=== PATIENT | male | born 1970 | race Caucasian/White ===

== ENCOUNTER 2020-03-09 09:45 | Emergency (ER) | payer SELFPAY ==
--- NOTE | 2020-03-09 10:51 | ER Document Report ---
ED GI/ - General Chief Complaint: Groin Pain Stated Complaint: GROIN PAIN Time Seen by Provider: 03/09/20 10:10 Primary Care Provider: KINGSLEY MORA [NO LOCAL MD] - Follow up as needed Notes: 50-year-old male presenting to the emergency department with a 1 month history of and in the testicular region. He states that the right testicle and the right upper area of his scrotum has been giving him pain intermittently for approximately a month. The pain became worse today so he decided to come to the emergency department for further evaluation and treatment. He denies fever, dysuria, charge, nauseavomiting, or a bulging in the groin area. - Related Data Allergies/Adverse Reactions: No Known Allergies Allergy (Verified 03/09/20 09:58) Past Medical History - Social History Smoking Status: Never Smoker Chew tobacco use (# tins/day): No Frequency of alcohol use: Occasional Drug Abuse: None Family History: Reviewed & Not Pertinent Patient has homicidal ideation: No - Past Medical History Cardiac Medical History: Reports: Hx Hypertension Pulmonary Medical History: Reports: Hx Asthma Endocrine Medical History: Reports: Hx Diabetes Mellitus Type 1, Hx Diabetes Mellitus Type 2 - Immunizations Hx Diphtheria, Pertussis, Tetanus Vaccination: Yes Review of Systems - Review of Systems Notes: Constitutional: Negative for fever. HENT: Negative for sore throat. Eyes: Negative for visual changes. Cardiovascular: Negative for chest pain. Respiratory: Negative for shortness of breath. Gastrointestinal: Negative for abdominal pain, vomiting or diarrhea. Genitourinary: + Right testicular pain Musculoskeletal: Negative for back pain. Skin: Negative for rash. Neurological: Negative for headaches, weakness or numbness. 10 point ROS negative except as marked above and in HPI. Physical Exam - Vital signs Vitals: Temp Pulse Resp BP Pulse Ox 98.8 F 115 H 16 130/87 H 99 03/09/20 09:52 03/09/20 09:52 03/09/20 09:52 03/09/20 09:52 03/09/20 09:52 - Notes Notes: PHYSICAL EXAMINATION: Physical Exam: General: Well-nourished well-developed 50-year-old mood in no acute distress HEENT: NC/AT, pupils equal round and reactive to light, MM moist,nares clear, oropharynx clear, airway patent Neck: supple, no adenopathy, no masses. Good range of motion Lungs: clear, no wheezing, no rales no rhonchi CVS: Regular rate and rhythm no murmur gallop or rub Abdomen: Soft, active, nontender, no masses, no hepatosplenomegaly : Normal male genitalia, no tenderness in the epididymis and testicular region on the right. No swelling, no fluid collection. Ext: No edema, clubbing or cyanosis. Neuro: Alert and responsive, moving all 4 extremities on command, cranial nerves intact, no focal findings Skin: Intact no open lesions, no rash PSYCH: Normal mood, normal affect. Course - Re-evaluation Re-evalutation: 03/09/20 13:45 Review of the ultrasound and laboratory data is nondiagnostic as I explained to patient is symptoms unclear. Could he have a orchitis with subacute presentati on, certainly possible. We will treat empirically with doxycycline and then refer to urology for follow-up. Patient is in agreement with that plan. - Vital Signs Vital signs: Temp Pulse Resp BP Pulse Ox 98.8 F 115 H 16 130/87 H 99 03/09/20 09:52 03/09/20 09:52 03/09/20 09:52 03/09/20 09:52 03/09/20 09:52 - Laboratory Laboratory results interpreted by me: 03/09/20 03/09/20 09:56 10:53 POC Glucose 141 H Urine Ascorbic Acid 20 H 03/09/20 13:46 I have reviewed laboratory data and used this information for the treatment decisions regarding the patient. - Diagnostic Test Radiology reviewed: Image reviewed, Reports reviewed Radiology results interpreted by me: 03/09/20 13:49 Scrotum Ultrasound 03/09/20 10:50 IMPRESSION: NORMAL SCROTAL ULTRASOUND. NO EVIDENCE OF TESTICULAR MASS OR TORSION. Discharge - Discharge Clinical Impression: Orchitis of right testicle Condition: Good Disposition: HOME, SELF-CARE Instructions: Doxycycline ([facility]), Epididymitis ([facility]) Additional Instructions: You were seen in emergency department today with right complaint of pain in the testicular area. There is no signs of torsion or decreased blood flow on the ultrasound. The question of an orchitis, Orcho- epididymitis is raised by the duration and type of symptoms that you have noted. An empiric course of doxycycline, I have also given you the name of the urology group for referral. Take medication as prescribed and follow-up with urologist if needed. HOME CARE INSTRUCTIONS & INFORMATION: Thank you for choosing us for your medical needs. We hope you're satisfied with the care you received. After you leave, you must properly care for your problem and, at the same time, observe its progress. Any condition can change. Some illnesses can change rapidly over hours or days. If your condition worsens, return to the Emergency Department or see your physician promptly. ABOUT YOUR X-RAYS AND EKG'S: If you had an EKG or X-rays taken, they have been read by the Emergency Physician. The X-rays and EKG's will also be read by a Radiologist or [facility] within 24 hours. If discrepancies are noted, you will be notified by telephone. Please be certain the ED has a correct telephone number & address where you can be reached. Also, realize that some fractures or abnormalities do not show up on initial X-rays. If your symptoms continue, see your physician. ABOUT YOUR LABORATORY TEST: If you had laboratory tests, the results have been reviewed by the Emergency Physician. Some test results (for example cultures) may not be available for several days. You will be contacted if any test result shows you need additional treatment. Please be certain the ED has a correct telephone number and address where you can be reached. ABOUT YOUR MEDICATIONS: You will receive instructions on how to take your medicine on the prescription label you receive. Additional information may be provided by the Pharmacy. If you have questions afterwards, call the ED for clarification or further instructions. Some prescribed medications may cause drowsiness. Do not perform tasks such as driving a car or operating machinery without consulting your Pharmacist. If you feel you need a refill of pain medication, your condition will need re-evaluation. Please do not call for a refill of any medication. ABOUT YOUR SIGNATURE: Signature of this document acknowledges to followin. Understanding that you received emergency treatment and that you may be released before al medical problems are known or treated. Please be certain the ED has a correct phone number & address where you can be reached. 2. Acknowledgement that you will arrange for follow-up care as recommended. 3. Authorization for the Emergency Physician to provide information to your follow-up Physician in order to maximize your care. AT ANY TIME, IF YOUR SYMPTOMS CHANGE SIGNIFICANTLY OR WORSEN OR YOU DEVELOP NEW SYMPTOMS, RETURN TO THE EMERGENCY DEPARTMENT IMMEDIATELY FOR RE-EVALUATION. OUR GOAL IS TO PROVIDE EXCELLENT MEDICAL CARE! WE HOPE THAT WE HAVE MET YOUR EXPECTATIONS DURING YOUR EMERGENCY DEPARTMENT VISIT AND THAT YOU FEEL YOU HAVE RECEIVED EXCELLENT CARE! Prescriptions: Doxycycline Monohydrate 100 mg PO BID #20 capsule Referrals: LOCAL,NO [NO LOCAL MD] - Follow up as needed
[2020-03-09 11:12] LABS: APPEARANCE,URINE CLEAR; BILIRUBIN,URINE NEGATIVE (NEGATIVE); COLOR,URINE STRAW; GLUCOSE, URINE NEGATIVE (NEGATIVE); KETONES,URINE NEGATIVE (NEGATIVE); PROTEIN,URINE NEGATIVE (NEGATIVE); URINE SPECIFIC GRAVITY 1.004; UROBILINOGEN,URINE NEGATIVE mg/dL (<2.0)
[2020-03-09 12:43] LABS: CHLAM PCR NOT DETECTED (NOT DETECT)
--- NOTE | 2020-03-09 12:51 | RADIOLOGY REPORT (SQ) ---
EXAM DESCRIPTION: U/S SCROTUM W/DOPPLER IMAGES COMPLETED DATE/TIME: 03/09/2020 12:41 pm REASON FOR STUDY: rt. Testicular pain. COMPARISON: None. TECHNIQUE: Static and realtime hess scale imaging of the scrotum and testes. Selected color Doppler and spectral images recorded to document blood flow. LIMITATIONS: None. FINDINGS: RIGHT: TESTICLE: Normal size. Normal echotexture. Normal blood flow. No mass. EPIDIDYMIS: Normal. HYDROCELE OR VARICOCELE: No. HERNIA OR EXTRA-TESTICULAR MASS: No. OTHER: No other significant finding. LEFT: TESTICLE: Normal size. Normal echotexture. Normal blood flow. No mass. EPIDIDYMIS: Normal. HYDROCELE OR VARICOCELE: No. HERNIA OR EXTRA-TESTICULAR MASS: No. OTHER: No other significant finding. IMPRESSION: NORMAL SCROTAL ULTRASOUND. NO EVIDENCE OF TESTICULAR MASS OR TORSION. TECHNICAL DOCUMENTATION: JOB ID: [id number] 2010 [employer]- All Rights Reserved Reading location - IP/workstation name: [email or web address]
[2020-03-09 14:08] VITALS: BP 119/85
== END 2020-03-09 14:04 | disposition home or self-care (01) ==
LOC: ER 09:45
DX: N45.2 Orchitis (principal); I10 Essential (primary) hypertension; J45.909 Unspecified asthma, uncomplicated; E11.9 Type 2 diabetes mellitus without complications
CPT/HCPCS: 76870; 81001; 82962; 87491; 87591; 93976; 99284